=== PATIENT | female | born 1930 | race Caucasian/White ===

== ENCOUNTER 2017-01-09 15:44 | Emergency (ER) | payer BC ==
[~2017-01-09 15:44] MED LIST: ASPI-630 PO; CA C1TAB63 PO; ESCITALOPRAM OX10 MG PO; LISI-334 PO; LOVA10TA PO
[2017-01-09] MEDS ORDERED: MORPHINE SULFATE 2 MG/ML DISP.SYRIN. IV ONE ×2 (16:30→18:30)
[2017-01-09] MEDS ORDERED: ONDANSETRON PF 4 MG/2 ML VIAL. IV ONE (16:30)
--- NOTE | 2017-01-09 16:42 | PHYS DOC ---
Past Medical History Past Medical History: Arthritis, Dementia, Diabetes-Type II, High Cholesterol, Hypertension, IBS, Other Additional Past Medical Histor: "Some problem swallowing", osteoarthritis, meningioma Past Surgical History: Appendectomy, Cholecystectomy, Other Additional Past Surgical Histo: hiatel Hernia, removal of rectal cysts, R hip fx Alcohol Use: None Drug Use: None Adult General Chief Complaint Chief Complaint: MECHANICAL FALL HPI HPI Patient is a 86 year old female who presents with fall or slide out of the wheelchair. Complaining of right hip pain, didn't hit her head but no LOC no neck pain. Patient is status post right hip ORIF approximately 3 weeks ago. Patient denies any back pain neck pain abdominal pain chest pain or rib pain. Review of Systems Review of Systems Constitutional: Denies fever or chills [] Eyes: Denies change in visual acuity, redness, or eye pain [] HENT: Denies nasal congestion or sore throat [] Respiratory: Denies cough or shortness of breath [] Cardiovascular: No additional information not addressed in HPI [] GI: Denies abdominal pain, nausea, vomiting, bloody stools or diarrhea [] : Denies dysuria or hematuria [] Musculoskeletal: Denies back pain or joint pain [] Integument: Denies rash or skin lesions [] Neurologic: Denies headache, focal weakness or sensory changes [] Endocrine: Denies polyuria or polydipsia [] All review systems are negative except as mentioned in the history of present illness Current Medications Current Medications Current Medications Medications (Trade) Dose Ordered Sig/[facility] Start Time Stop Time Status Last Admin Dose Admin Morphine Sulfate 2 mg 1X ONCE 01/09/17 18:30 01/09/17 18:31 DC 01/09/17 18:13 2 MG Ondansetron HCl (Zofran) 4 mg 1X ONCE 01/09/17 16:30 01/09/17 16:31 DC 01/09/17 17:00 4 MG Allergies Allergies Allergies Coded Allergies Type Severity Reaction Last Updated Verified codeine Adverse Reaction Intermediate Vomiting. 04/09/15 Yes donepezil Adverse Reaction Intermediate Nausea and Vomiting 04/09/15 Yes Physical Exam Physical Exam Constitutional: Well developed, well nourished, no acute distress, non-toxic appearance. [] HENT: Normocephalic, atraumatic, bilateral external ears normal, oropharynx moist, no oral exudates, nose normal. [] Eyes: PERRLA, EOMI, conjunctiva normal, no discharge. [] Neck: Normal range of motion, no tenderness, supple, no stridor. [] Cardiovascular:Heart rate regular rhythm, no murmur [] Lungs & Thorax: Bilateral breath sounds clear to auscultation [] Abdomen: Bowel sounds normal, soft, no tenderness, no masses, no pulsatile masses. [] Skin: Warm, dry, no erythema, no rash. [] Back: No tenderness, no CVA tenderness. [] Extremities: Right lower extremity is externally rotated and foreshortened with tenderness to palpation of the lateral proximal femur, no cyanosis, no clubbing , asymptomatic with range of motion of left leg and bilateral upper extremities and no pain to palpation of those extremities, no edema. [] Neurologic: Alert and oriented X 3, normal motor function, normal sensory function, no focal deficits noted. [] Psychologic: Affect normal, judgement normal, mood normal. [] Current Patient Data Vital Signs Vital Signs Date Time Temp Pulse Resp B/P (MAP) Pulse Ox O2 Delivery O2 Flow Rate FiO2 01/09/17 18:13 Room Air 01/09/17 18:09 96 26 136/60 (85) 01/09/17 17:04 96 01/09/17 15:50 98.2 98.2 Lab Values Laboratory Tests Test 01/09/17 17:04 POC Hemoglobin 13.3 g/dL (12-15) POC Hematocrit 39 % (36-40) POC Sodium 141 mmol/L (135-145) POC Potassium 4.0 mmol/L (3.5-5.0) POC Chloride 102 mmol/L (98-110) POC Total CO2 27 mmol/L (23-32) Anion Gap 17 mmol/L (6-14) H POC Blood Urea Nitrogen 17 mg/dL (8-26) POC Creatinine 0.7 mg/dL (0.5-1.4) Glucose Level 117 mg/dL (70-99) H POC Ionized Calcium ([place]) 1.15 mmol/L (1.13-1.32) Laboratory Tests 01/09/17 17:04 EKG EKG [] Radiology/Procedures Radiology/Procedures CT head C-spine negative per radiology report. Chest x-ray negative per my interpretation. X-ray pelvis right hip and femur demonstrated a periprosthetic fracture that's at about the level of the mid portion of the intramedullary stem is nondisplaced , no hip dislocation this is my review independently of the images and the radiologist official report. [] Course & Med Decision Making Course & Med Decision Making Pertinent Labs and Imaging studies reviewed. (See chart for details) Plan will be plain films of the pelvis and right hip to exclude hip dislocation/ periprosthetic fracture. CT head and C-spine. X-rays of the right hip femur pelvis demonstrated nondisplaced periprosthetic fracture that appears to be stable and within the range mid distance of the intramedullary luis. This was discussed in detail and images were reviewed by Dr. Dunn the orthopedic surgeon who did the surgery. Patient is to be weightbearing only as tolerated and to return back to her [facility]. [] Dragon Disclaimer Dragon Disclaimer This electronic medical record was generated, in whole or in part, using a voice recognition dictation system. Departure Departure Impression: Primary Impression: Periprosthetic fracture around internal prosthetic right hip joint Disposition: 01 HOME, SELF-CARE Condition: STABLE Referrals: RODGER RICE MD (PCP) Patient Instructions: Musculoskeletal Pain Additional Instructions: Patient may weight-bear only as she tolerates it. She may take Tylenol or her Ultram as needed for pain. SILVINA TORRES MD Jan 09, 2017 16:42
--- NOTE | 2017-01-09 17:17 | RAD ---
CT HEAD AND CERVICAL SPINE WO dated 01/09/2017 4:41 PM Indication:FALL, HEAD AND NECK INJURY, PRIORS SENT Comparison: CT head of March 13, 2016. Technique: One or more of the following individualized dose reduction techniques were utilized for this examination: 1. Automated exposure control 2. Adjustment of the mA and/or kV according to patient size 3. Use of iterative reconstruction technique Findings: CT head: There is no evidence of hemorrhage. 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 These are unchanged. No acute areas of infarction or mass lesion is seen. There is no shift of the midline structures. There is mild prominence of the ventricles and sulci which is unchanged, consistent with age-related atrophy. Bone windows show no acute skull fracture. There is a craniotomy defect in the left frontal/temporal region with plates. IMPRESSION: The CT of the head shows no acute abnormality. 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 There are chronic ischemic changes in the deep white matter. Postoperative changes are seen in the left temporal/frontal region. CT of the cervical spine findings: No cervical spine fracture or subluxation seen. There are degenerative changes with severe disc space narrowing at C4-5, C5-6 and C6-7 and moderate disc space narrowing at other levels. There is minimal anterolisthesis of C3 on C4 which is probably on a degenerative basis. There is degenerative facet disease at multiple levels. There is no narrowing of the spinal canal. The paraspinous soft tissues are unremarkable, except for thyroid nodules. There is nodule extending inferior to the thyroid gland in the pretracheal region which measures approximately 2 cm. IMPRESSION: No cervical spine fracture or subluxation is seen. There are degenerative changes. Thyroid nodules are noted with the largest measuring 2 cm. Electronically signed by: Lucia Aldrich MD (01/09/2017 5:14 PM) [facility]
--- NOTE | 2017-01-09 18:45 | RAD ---
2 views right femur and two-view right hip and single AP view pelvis dated 01/09/2017. Comparison made to 12/19/2016. Clinical indication: Periprosthetic fracture. FINDINGS: Single AP view pelvis performed along with 2 views right hip and 2 views right femur. There is an oblique fracture line through the lateral cortex of the subtrochanteric right femur that extends to the midportion of the anterior greater intramedullary nail. No definite extension to the medial cortex. No significant displacement. Fracture lines at the base of the femoral neck/intertrochanteric region are similar to prior study. Intramedullary nail and femoral neck stabilizing screws are similar in position. There is a radiolucent defect through the proximal one third femoral shaft, consistent with defect from previously removed interlocking screw. Mild degenerative change at the right hip joint. Moderate degenerative change at the right knee joint. No apparent joint effusion. Pelvic ring is intact. IMPRESSION: 1. Nondisplaced fracture through the lateral aspect of the subtrochanteric right femur extending to the midportion of the anterior grade intramedullary nail. No definite extension to the medial cortex, however this cannot be excluded. If indicated, CT may provide more accurate evaluation. 2. Status post ORIF intertrochanteric/base of femoral neck fracture, stable from prior exam. Electronically signed by: Claudy Tyler MD (01/09/2017 6:42 PM) [facility]
[2017-01-09 19:34] VITALS: BP 143/66
--- NOTE | 2017-01-10 08:41 | RAD ---
Single view of the Chest 01/09/2017 6:15 PM Indication: fall injury Comparison: Chest radiograph December 18, 2016 Findings: The patient is mildly rotated. There is no focal consolidation or infiltrate identified. There is no effusion or pneumothorax. Heart size is stable and normal. Bony thorax appears to be grossly intact Impression: No evidence of acute cardiopulmonary process.
== END 2017-01-09 20:40 | disposition home or self-care (01) ==
LOC: ER 15:44
DX: M97.01XA Periprosthetic fracture around internal prosthetic right hip joint, initial encounter (principal); T84.010A Broken internal right hip prosthesis, initial encounter; M19.90 Unspecified osteoarthritis, unspecified site; F03.90 Unspecified dementia, unspecified severity, without behavioral disturbance, psychotic disturbance, mood disturbance, and anxiety; E11.9 Type 2 diabetes mellitus without complications; E78.00 Pure hypercholesterolemia, unspecified; I10 Essential (primary) hypertension; K58.9 Irritable bowel syndrome, unspecified; Z88.8 Allergy status to other drugs, medicaments and biological substances; Z88.5 Allergy status to narcotic agent; W05.0XXA Fall from non-moving wheelchair, initial encounter; Y93.89 Activity, other specified; Y92.89 Other specified places as the place of occurrence of the external cause; Y99.8 Other external cause status
CPT/HCPCS: 70450; 71010; 72125; 73502; 73552; 80047; 96374; 96375; 96376; 99284; J2270; J2405; 36415